=== PATIENT | male | born 1950 | race Caucasian/White ===

== ENCOUNTER 2018-08-19 11:29 | Emergency (ER) | payer MEDICARE, BC ==
[2018-08-19 11:59] LABS: ADD MAN DIFF? NO
[2018-08-19] MEDS: ONDANSETRON 4 MG INJ IV (12:01)
[2018-08-19] MEDS: morphine 4 MG/ML VIAL IV (12:01)
[2018-08-19] MEDS: NITROGLYCERIN (SL) 0.4 MG TAB SL (12:01)
[2018-08-19 12:06] LABS: BASOPHIL # 0.1 10^3/ul (0.0-0.1); EOSINOPHILS # 0.1 10^3/ul (0.0-0.5); HEMATOCRIT 36.6 % (42.0-52.0); LYMPHOCYTES # 1.2 10^3/ul (0.8-2.9); LYMPHOCYTES % 13.6 % (15.0-51.0); MEAN CORPUSCULAR HEMOGLOBIN 28.4 pg (29.0-33.0); MEAN CORPUSCULAR HGB CONC 32.8 g/dl (32.0-37.0); MEAN CORPUSCULAR VOLUME 86.7 fl (82.0-101.0); MEAN PLATELET VOLUME 10.8 fl (7.4-10.4); MONOCYTE # 1.2 10^3/ul (0.3-0.9); MONOCYTES % 12.9 % (0.0-11.0); NEUTROPHIL # 6.5 10^3/ul (1.6-7.5); NEUTROPHILS % 71.2 % (39.0-77.0); PLATELET COUNT 241 10^3/UL (140-415); RED BLOOD COUNT 4.22 10^6/ul (4.70-6.10); RED CELL DISTRIBUTION WIDTH 14.8 % (11.5-14.5)
[2018-08-19 12:06] LABS: WHITE BLOOD COUNT 9.1 10^3/ul (4.8-10.8)
[2018-08-19] MEDS: METOPROLOL 5 MG INJ IV (12:15)
[2018-08-19 12:30] LABS: ANION GAP 14 (5-13); BLOOD UREA NITROGEN 45 mg/dl (7-20); CALCIUM 8.9 mg/dl (8.4-10.2); CARBON DIOXIDE 18 mmol/L (21-31); CHLORIDE 109 mmol/L (97-110); CREATININE 5.47 mg/dl (0.61-1.24); GLUCOSE 125 mg/dl (70-220); POTASSIUM 4.3 mmol/L (3.5-5.1); SODIUM 141 mmol/L (135-144)
[2018-08-19 12:44] LABS: TROPONIN-I 0.021 ng/ml (0.000-0.120)
[2018-08-19 13:29] LABS: INR 0.97
[2018-08-19 14:04] LABS: PARTIAL THROMBOPLASTIN TIME 33.2 Sec (23.0-35.0)
== END 2018-08-19 14:12 | disposition short-term general hospital (02) ==
LOC: E/R 11:29
DX: I24.9 Acute ischemic heart disease, unspecified (principal); I16.1 Hypertensive emergency; N17.9 Acute kidney failure, unspecified; I25.10 Atherosclerotic heart disease of native coronary artery without angina pectoris; I50.9 Heart failure, unspecified; Z95.1 Presence of aortocoronary bypass graft; Z87.891 Personal history of nicotine dependence; Z79.01 Long term (current) use of anticoagulants
CPT/HCPCS: 36415; 71045; 80048; 84484; 85025; 85610; 85730; 93005; 96374; 96375; 99291-25

== ENCOUNTER 2019-02-02 07:13 | Inpatient (IN) | payer MEDICARE, BC ==
[2019-02-02 07:50] LABS: ADD MAN DIFF? NO
[2019-02-02 07:51] LABS: WHITE BLOOD COUNT 9.4 10^3/ul (4.8-10.8)
[2019-02-02 07:52] LABS: BASOPHIL # 0.1 10^3/ul (0.0-0.1); BASOPHILS % 1.1 % (0.0-2.0); EOSINOPHILS # 0.2 10^3/ul (0.0-0.5); EOSINOPHILS % 2.4 % (0.0-7.0); HEMATOCRIT 38.4 % (42.0-52.0); HEMOGLOBIN 12.4 g/dl (14.0-18.0); LYMPHOCYTES # 1.8 10^3/ul (0.8-2.9); LYMPHOCYTES % 19.3 % (15.0-51.0); MEAN CORPUSCULAR HEMOGLOBIN 26.8 pg (29.0-33.0); MEAN CORPUSCULAR HGB CONC 32.3 g/dl (32.0-37.0); MEAN CORPUSCULAR VOLUME 82.9 fl (82.0-101.0); MEAN PLATELET VOLUME 10.3 fl (7.4-10.4); MONOCYTES % 11.1 % (0.0-11.0); NEUTROPHIL # 6.2 10^3/ul (1.6-7.5); NEUTROPHILS % 65.7 % (39.0-77.0); PLATELET COUNT 285 10^3/UL (140-415); RED BLOOD COUNT 4.63 10^6/ul (4.70-6.10); RED CELL DISTRIBUTION WIDTH 18.7 % (11.5-14.5)
[2019-02-02] MEDS: morphine 4 MG/ML VIAL IV ×2 (07:59→11:21)
[2019-02-02 08:09] LABS: ANION GAP 11 (5-13); CARBON DIOXIDE 31 mmol/L (21-31); CHLORIDE 97 mmol/L (97-110); GLUCOSE 119 mg/dl (70-220); POTASSIUM 4.3 mmol/L (3.5-5.1); SODIUM 139 mmol/L (135-144)
[2019-02-02 08:10] LABS: BLOOD UREA NITROGEN 12 mg/dl (7-20); CALCIUM 9.5 mg/dl (8.4-10.2); CREATININE 4.31 mg/dl (0.61-1.24); Estimated GFR 14 mL/min (>60)
[2019-02-02 08:20] LABS: TROPONIN-I 0.114 ng/ml (0.000-0.120)
[2019-02-02] MEDS ORDERED: ACETAMINOPHEN 325 MG TAB PO ×2 (09:00→12:00)
[2019-02-02] MEDS ORDERED: ONDANSETRON 4 MG INJ IV (09:00)
[2019-02-02] MEDS ORDERED: NACL 0.9% 3 ML SYG IV (12:00)
[2019-02-02] MEDS ORDERED: HYDROCODONE/APAP (5/325) TAB PO (12:30)
[2019-02-02] MEDS: NICOTINE (7 MG/24 HR) PATCH TRANSDERM (12:58)
[2019-02-02] MEDS: FAMOTIDINE 20 MG TAB PO (13:47)
[2019-02-02] MEDS: HEPARIN 5,000 UNIT/1 ML VIAL SC ×2 (13:56→22:07)
[2019-02-02 14:45] LABS: HEMOGLOBIN A1C 5.7 % (0-5.9)
[2019-02-02 14:53] LABS: CREATINE KINASE 58 IU/L (23-200)
[2019-02-02 15:03] LABS: CK INDEX 6.9
[2019-02-02 15:04] LABS: CK-MB 4.03 ng/ml (0.0-2.4)
[2019-02-02 15:05] LABS: TROPONIN-I 0.891 ng/ml (0.000-0.120)
[2019-02-02 15:15] LABS: HAAIG REFLEX REFLEX FILED
[2019-02-02 15:54] LABS: HEPATITIS B SURFACE ANTIGEN NEGATIVE (NEGATIVE)
[2019-02-02 16:12] LABS: HEPATITIS B CORE ANTIBODY NEGATIVE (NEGATIVE); HEPATITIS C VIRAL ANTIBODY NEGATIVE (NEGATIVE)
[2019-02-02 20:08] LABS: CREATINE KINASE 59 IU/L (23-200)
[2019-02-02 20:21] LABS: CK INDEX 6.2
[2019-02-02 20:39] LABS: CK-MB 3.68 ng/ml (0.0-2.4)
[2019-02-02] MEDS ORDERED: ATORVASTATIN 10 MG TAB PO (21:00)
[2019-02-02] MEDS: ATORVASTATIN 40 MG TAB PO (21:56)
[2019-02-03] MEDS: DOXAZOSIN 2 MG TAB PO ×2 (00:47→20:19)
[2019-02-03 01:54] LABS: CREATINE KINASE 62 IU/L (23-200)
[2019-02-03 02:07] LABS: CK INDEX 4.8
[2019-02-03] MEDS: HEPARIN 1000 UNITS/ML 10 ML INJ CATHETER (02:54)
[2019-02-03] MEDS: ONDANSETRON 4 MG INJ IV (02:55)
[2019-02-03] MEDS: NITROGLYCERIN (SL) 0.4 MG TAB SL (03:50)
[2019-02-03] MEDS: morphine 2 MG INJ IV (04:27)
[2019-02-03] MEDS: HEPARIN 5,000 UNIT/1 ML VIAL SC ×3 (06:42→21:37)
[2019-02-03 06:51] LABS: ADD MAN DIFF? NO
[2019-02-03 06:55] LABS: WHITE BLOOD COUNT 10.5 10^3/ul (4.8-10.8)
[2019-02-03 06:55] LABS: BASOPHIL # 0.1 10^3/ul (0.0-0.1); BASOPHILS % 0.6 % (0.0-2.0); EOSINOPHILS % 0.2 % (0.0-7.0); HEMATOCRIT 36.7 % (42.0-52.0); LYMPHOCYTES # 1.2 10^3/ul (0.8-2.9); LYMPHOCYTES % 11.1 % (15.0-51.0); MEAN CORPUSCULAR HEMOGLOBIN 27.2 pg (29.0-33.0); MEAN CORPUSCULAR HGB CONC 32.7 g/dl (32.0-37.0); MEAN CORPUSCULAR VOLUME 83.2 fl (82.0-101.0); MEAN PLATELET VOLUME 10.7 fl (7.4-10.4); MONOCYTE # 0.8 10^3/ul (0.3-0.9); MONOCYTES % 7.4 % (0.0-11.0); NEUTROPHIL # 8.4 10^3/ul (1.6-7.5); NEUTROPHILS % 80.2 % (39.0-77.0); PLATELET COUNT 274 10^3/UL (140-415); RED BLOOD COUNT 4.41 10^6/ul (4.70-6.10); RED CELL DISTRIBUTION WIDTH 18.6 % (11.5-14.5)
[2019-02-03 07:36] LABS: ANION GAP 11 (5-13); BLOOD UREA NITROGEN 12 mg/dl (7-20); CALCIUM 9.3 mg/dl (8.4-10.2); CARBON DIOXIDE 26 mmol/L (21-31); CHLORIDE 100 mmol/L (97-110); CREATININE 3.85 mg/dl (0.61-1.24); Estimated GFR 16 mL/min (>60); GLUCOSE 119 mg/dl (70-220); POTASSIUM 4.7 mmol/L (3.5-5.1); SODIUM 137 mmol/L (135-144)
[2019-02-03 07:41] LABS: LDL CHOLESTEROL,CALCULATED 143 mg/dl
[2019-02-03 07:44] LABS: MAGNESIUM 2.1 mg/dl (1.7-2.5)
[2019-02-03 07:44] LABS: PHOSPHORUS 3.5 mg/dl (2.5-4.9)
[2019-02-03 07:47] LABS: CREATINE KINASE 49 IU/L (23-200)
[2019-02-03 07:50] LABS: CHOLESTEROL 218 mg/dl (100-200)
[2019-02-03 07:50] LABS: HDL CHOLESTEROL 36 mg/dl (30-78); TRIGLYCERIDES 195 mg/dl (0-149)
[2019-02-03 08:00] LABS: CK INDEX 4.7; CK-MB 2.28 ng/ml (0.0-2.4)
[2019-02-03] MEDS: NICOTINE (7 MG/24 HR) PATCH TRANSDERM (08:08)
[2019-02-03] MEDS: ASPIRIN (EC) 81 MG TAB PO (08:09)
[2019-02-03] MEDS: CLOPIDOGREL 75 MG TAB PO (08:10)
[2019-02-03] MEDS: METOPROLOL (XL) 50 MG TAB PO (08:10)
[2019-02-03] MEDS: AMLODIPINE 10 MG TAB PO (08:10)
[2019-02-03] MEDS: ISOSORBIDE MONONITRATE(SR)30 MG TAB PO (08:10)
[2019-02-03] MEDS: FAMOTIDINE 20 MG TAB PO (08:10)
[2019-02-03] MEDS ORDERED: ISOSORBIDE MONONITRATE(SR)30 MG TAB PO (09:00)
[2019-02-03 12:47] LABS: CREATINE KINASE 54 IU/L (23-200)
[2019-02-03 13:00] LABS: CK INDEX 3.3
[2019-02-03] MEDS ORDERED: SOD CHLORIDE 0.9% 1,000 ML IV (13:29)
[2019-02-03] MEDS ORDERED: ALBUMIN HUMAN 25% 100 ML IV (13:30)
[2019-02-03] MEDS ORDERED: HEPARIN 1000 UNITS/ML 10 ML INJ CATHETER (13:30)
[2019-02-03] MEDS ORDERED: SODIUM CHLORIDE 0.9% 1L BAG IV (13:30)
[2019-02-03] MEDS: ATORVASTATIN 40 MG TAB PO (20:20)
[2019-02-04] MEDS: NITROGLYCERIN (SL) 0.4 MG TAB SL (05:33)
[2019-02-04] MEDS: HEPARIN 5,000 UNIT/1 ML VIAL SC ×3 (05:40→22:19)
[2019-02-04 06:09] LABS: ADD MAN DIFF? NO
[2019-02-04 06:20] LABS: WHITE BLOOD COUNT 8.3 10^3/ul (4.8-10.8)
[2019-02-04 06:20] LABS: BASOPHILS % 0.5 % (0.0-2.0); EOSINOPHILS # 0.1 10^3/ul (0.0-0.5); EOSINOPHILS % 1.6 % (0.0-7.0); HEMATOCRIT 33.4 % (42.0-52.0); LYMPHOCYTES # 1.9 10^3/ul (0.8-2.9); LYMPHOCYTES % 22.5 % (15.0-51.0); MEAN CORPUSCULAR HEMOGLOBIN 27.2 pg (29.0-33.0); MEAN CORPUSCULAR HGB CONC 32.9 g/dl (32.0-37.0); MEAN CORPUSCULAR VOLUME 82.7 fl (82.0-101.0); MEAN PLATELET VOLUME 11.1 fl (7.4-10.4); MONOCYTES % 12.4 % (0.0-11.0); NEUTROPHIL # 5.2 10^3/ul (1.6-7.5); NEUTROPHILS % 62.6 % (39.0-77.0); PLATELET COUNT 285 10^3/UL (140-415); RED BLOOD COUNT 4.04 10^6/ul (4.70-6.10); RED CELL DISTRIBUTION WIDTH 18.6 % (11.5-14.5)
[2019-02-04 06:51] LABS: ALANINE AMINOTRANSFERASE 15 IU/L (13-69); ALBUMIN 3.3 g/dl (3.3-4.9); ALBUMIN/GLOBULIN RATIO 0.97; ALKALINE PHOSPHATASE 101 IU/L (42-121); ANION GAP 12 (5-13); ASPARTATE AMINO TRANSFERASE 20 IU/L (15-46); BILIRUBIN,INDIRECT 0.3 mg/dl (0-1.1); BILIRUBIN,TOTAL 0.3 mg/dl (0.2-1.3); BLOOD UREA NITROGEN 22 mg/dl (7-20); CALCIUM 9.4 mg/dl (8.4-10.2); CARBON DIOXIDE 26 mmol/L (21-31); CHLORIDE 100 mmol/L (97-110); CREATININE 5.65 mg/dl (0.61-1.24); Estimated GFR 10 mL/min (>60); GLUCOSE 125 mg/dl (70-220); POTASSIUM 4.4 mmol/L (3.5-5.1); SODIUM 138 mmol/L (135-144); TOTAL PROTEIN 6.7 g/dl (6.1-8.1)
[2019-02-04 06:54] LABS: CK-MB 1.22 ng/ml (0.0-2.4)
[2019-02-04 06:58] LABS: MAGNESIUM 2.2 mg/dl (1.7-2.5)
[2019-02-04] MEDS: AMLODIPINE 10 MG TAB PO (08:27)
[2019-02-04] MEDS: ISOSORBIDE MONONITRATE(SR)30 MG TAB PO (08:27)
[2019-02-04] MEDS: CLOPIDOGREL 75 MG TAB PO (08:28)
[2019-02-04] MEDS: FAMOTIDINE 20 MG TAB PO (08:28)
[2019-02-04] MEDS: NICOTINE (7 MG/24 HR) PATCH TRANSDERM (08:28)
[2019-02-04] MEDS: ASPIRIN (EC) 81 MG TAB PO (08:28)
[2019-02-04] MEDS: METOPROLOL (XL) 50 MG TAB PO (08:29)
[2019-02-04] MEDS ORDERED: MIDAZOLAM 1 MG/ML 2 ML INJ ×2 (11:46→13:40)
[2019-02-04] MEDS ORDERED: FENTAnyl 50 MCG/ML VIAL ×2 (11:46→13:37)
[2019-02-04] MEDS ORDERED: LIDOCAINE 1% (MDV) 20 ML INJ (11:46)
[2019-02-04] MEDS ORDERED: IODIXANOL LOCM 100 ML BTL ×4 (11:46→15:30)
[2019-02-04] MEDS ORDERED: BIVALIRUDIN 250MG /NS 50 ML 50 ML IVPB (12:53)
[2019-02-04] MEDS ORDERED: NITROGLYCERIN (IC) 100 MCG/ML INJ (12:54)
[2019-02-04] MEDS ORDERED: IOHEXOL 350MG/ML 50 ML BTL (13:04)
[2019-02-04] MEDS ORDERED: CLOPIDOGREL 300 MG TAB (13:52)
[2019-02-04] MEDS ORDERED: ZOLPIDEM 5 MG TAB PO (14:00)
[2019-02-04] MEDS ORDERED: AL HYDROX/MG HYDROX/SIMETH 30 ML CUP PO (14:00)
[2019-02-04] MEDS ORDERED: OXYCODONE/ACETAMINOPHEN (5/325) TAB PO (14:00)
[2019-02-04] MEDS ORDERED: ONDANSETRON 4 MG INJ IV (14:00)
[2019-02-04] MEDS ORDERED: ACETAMINOPHEN 325 MG TAB PO (14:00)
[2019-02-04] MEDS: morphine 2 MG INJ IV (15:32)
[2019-02-04 15:45] LABS: CK-MB 1.09 ng/ml (0.0-2.4)
[2019-02-04] MEDS ORDERED: ATROPINE 1 MG/10 ML SYRINGE (16:31)
[2019-02-04] MEDS: DOXAZOSIN 2 MG TAB PO (20:19)
[2019-02-04] MEDS: ATORVASTATIN 40 MG TAB PO (20:19)
[2019-02-04] MEDS: SOD CHLORIDE 0.9% 1,000 ML IV (22:39)
[2019-02-05] MEDS: HEPARIN 5,000 UNIT/1 ML VIAL SC ×3 (06:00→21:04)
[2019-02-05 06:35] LABS: ADD MAN DIFF? NO
[2019-02-05 06:40] LABS: BASOPHIL # 0.1 10^3/ul (0.0-0.1); BASOPHILS % 0.7 % (0.0-2.0); EOSINOPHILS # 0.1 10^3/ul (0.0-0.5); EOSINOPHILS % 1.7 % (0.0-7.0); HEMATOCRIT 32.6 % (42.0-52.0); HEMOGLOBIN 10.7 g/dl (14.0-18.0); LYMPHOCYTES # 1.2 10^3/ul (0.8-2.9); MEAN CORPUSCULAR HGB CONC 32.8 g/dl (32.0-37.0); MEAN CORPUSCULAR VOLUME 82.3 fl (82.0-101.0); MEAN PLATELET VOLUME 11.3 fl (7.4-10.4); MONOCYTE # 0.9 10^3/ul (0.3-0.9); MONOCYTES % 12.5 % (0.0-11.0); NEUTROPHIL # 5.1 10^3/ul (1.6-7.5); NEUTROPHILS % 68.8 % (39.0-77.0); PLATELET COUNT 276 10^3/UL (140-415); RED BLOOD COUNT 3.96 10^6/ul (4.70-6.10); RED CELL DISTRIBUTION WIDTH 18.8 % (11.5-14.5)
[2019-02-05 06:40] LABS: WHITE BLOOD COUNT 7.5 10^3/ul (4.8-10.8)
[2019-02-05 07:07] LABS: MAGNESIUM 2.2 mg/dl (1.7-2.5)
[2019-02-05 07:08] LABS: ANION GAP 12 (5-13); BLOOD UREA NITROGEN 26 mg/dl (7-20); CALCIUM 9.2 mg/dl (8.4-10.2); CARBON DIOXIDE 23 mmol/L (21-31); CHLORIDE 99 mmol/L (97-110); CREATINE KINASE 64 IU/L (23-200); CREATININE 6.98 mg/dl (0.61-1.24); Estimated GFR 8 mL/min (>60); GLUCOSE 90 mg/dl (70-220); POTASSIUM 4.5 mmol/L (3.5-5.1); SODIUM 134 mmol/L (135-144)
[2019-02-05 07:14] LABS: CK INDEX 3.4; CK-MB 2.15 ng/ml (0.0-2.4)
[2019-02-05 07:33] LABS: THYROID STIMULATING HORMONE 0.389 MIU/L (0.465-4.680)
[2019-02-05] MEDS: AMLODIPINE 10 MG TAB PO (09:00)
[2019-02-05] MEDS: METOPROLOL (XL) 50 MG TAB PO (09:00)
[2019-02-05] MEDS: ISOSORBIDE MONONITRATE(SR)30 MG TAB PO (09:00)
[2019-02-05] MEDS: ASPIRIN (EC) 81 MG TAB PO (09:40)
[2019-02-05] MEDS: FAMOTIDINE 20 MG TAB PO (09:40)
[2019-02-05] MEDS: CLOPIDOGREL 75 MG TAB PO (09:40)
[2019-02-05] MEDS: NICOTINE (7 MG/24 HR) PATCH TRANSDERM (09:41)
[2019-02-05] MEDS: HEPARIN 1000 UNITS/ML 10 ML INJ CATHETER (10:46)
[2019-02-05] MEDS: SEVELAMER CARBONATE 800 MG TABLET PO ×2 (13:11→20:57)
[2019-02-05] MEDS: REGADENOSON 0.4 MG/5 ML SYG (19:52)
[2019-02-05] MEDS: DOXAZOSIN 2 MG TAB PO (20:56)
[2019-02-05] MEDS: ATORVASTATIN 40 MG TAB PO (20:57)
[2019-02-06 05:18] LABS: ADD MAN DIFF? NO
[2019-02-06] MEDS: HEPARIN 5,000 UNIT/1 ML VIAL SC ×2 (05:28→14:05)
[2019-02-06 05:29] LABS: WHITE BLOOD COUNT 6.8 10^3/ul (4.8-10.8)
[2019-02-06 05:29] LABS: BASOPHIL # 0.1 10^3/ul (0.0-0.1); BASOPHILS % 0.9 % (0.0-2.0); EOSINOPHILS # 0.2 10^3/ul (0.0-0.5); EOSINOPHILS % 3.1 % (0.0-7.0); HEMATOCRIT 33.7 % (42.0-52.0); HEMOGLOBIN 11.1 g/dl (14.0-18.0); LYMPHOCYTES # 1.6 10^3/ul (0.8-2.9); LYMPHOCYTES % 22.8 % (15.0-51.0); MEAN CORPUSCULAR HEMOGLOBIN 26.9 pg (29.0-33.0); MEAN CORPUSCULAR HGB CONC 32.9 g/dl (32.0-37.0); MEAN CORPUSCULAR VOLUME 81.8 fl (82.0-101.0); MEAN PLATELET VOLUME 10.5 fl (7.4-10.4); MONOCYTES % 15.3 % (0.0-11.0); NEUTROPHIL # 3.9 10^3/ul (1.6-7.5); NEUTROPHILS % 57.6 % (39.0-77.0); PLATELET COUNT 275 10^3/UL (140-415); RED BLOOD COUNT 4.12 10^6/ul (4.70-6.10); RED CELL DISTRIBUTION WIDTH 18.7 % (11.5-14.5)
[2019-02-06 05:51] LABS: MAGNESIUM 2.1 mg/dl (1.7-2.5)
[2019-02-06 06:01] LABS: ALANINE AMINOTRANSFERASE 9 IU/L (13-69); ALBUMIN 3.5 g/dl (3.3-4.9); ALBUMIN/GLOBULIN RATIO 0.92; ALKALINE PHOSPHATASE 115 IU/L (42-121); ANION GAP 9 (5-13); ASPARTATE AMINO TRANSFERASE 21 IU/L (15-46); BILIRUBIN,INDIRECT 0.5 mg/dl (0-1.1); BILIRUBIN,TOTAL 0.5 mg/dl (0.2-1.3); BLOOD UREA NITROGEN 18 mg/dl (7-20); CALCIUM 9.3 mg/dl (8.4-10.2); CARBON DIOXIDE 28 mmol/L (21-31); CHLORIDE 100 mmol/L (97-110); Estimated GFR 11 mL/min (>60); GLUCOSE 95 mg/dl (70-220); POTASSIUM 4.3 mmol/L (3.5-5.1); SODIUM 137 mmol/L (135-144); TOTAL PROTEIN 7.3 g/dl (6.1-8.1)
[2019-02-06 06:45] LABS: FREE T4 (FREE THYROXINE) 2.15 ng/dl (0.78-2.44)
[2019-02-06 07:00] LABS: TRIIODOTHYRONINE 0.92 ng/ml (0.97-1.69)
[2019-02-06 07:35] LABS: FOLATE 7.5 ng/ml (2.8-20.0)
[2019-02-06] MEDS: METOPROLOL (XL) 50 MG TAB PO (09:00)
[2019-02-06] MEDS: NICOTINE (7 MG/24 HR) PATCH TRANSDERM ×2 (09:00→12:48)
[2019-02-06] MEDS: AMLODIPINE 10 MG TAB PO (09:00)
[2019-02-06] MEDS: ISOSORBIDE MONONITRATE(SR)30 MG TAB PO (09:00)
[2019-02-06] MEDS: ASPIRIN (EC) 81 MG TAB PO (09:51)
[2019-02-06] MEDS: CLOPIDOGREL 75 MG TAB PO (09:51)
[2019-02-06] MEDS: SEVELAMER CARBONATE 800 MG TABLET PO ×2 (09:51→12:45)
[2019-02-06 16:57] LABS: RAPID PLASMA REAGIN NONREACTIVE (NR)
[2019-02-06] MEDS: HEPARIN 1000 UNITS/ML 10 ML INJ CATHETER (18:10)
== END 2019-02-06 20:30 | disposition home or self-care (01) | DRG 246 ==
LOC: E/R 07:13 → 2NE 02-05 21:40 → TEL 08:32
PROC: 027136Z Dilation of Coronary Artery, Two Arteries with Three Drug-eluting Intraluminal Devices, Percutaneous Approach (ICD-10-PCS; principal; 2019-02-04 11:30)
PROC: 4A023N7 Measurement of Cardiac Sampling and Pressure, Left Heart, Percutaneous Approach (ICD-10-PCS; 2019-02-04 11:30)
PROC: B211YZZ Fluoroscopy of Multiple Coronary Arteries using Other Contrast (ICD-10-PCS; 2019-02-04 11:30)
PROC: B218YZZ Fluoroscopy of Left Internal Mammary Bypass Graft using Other Contrast (ICD-10-PCS; 2019-02-04 11:30)
PROC: 5A1D70Z Performance of Urinary Filtration, Intermittent, Less than 6 Hours Per Day (ICD-10-PCS; 2019-02-04 11:47)
DX: I21.4 Non-ST elevation (NSTEMI) myocardial infarction (principal); N18.6 End stage renal disease; I13.2 Hypertensive heart and chronic kidney disease with heart failure and with stage 5 chronic kidney disease, or end stage renal disease; I50.30 Unspecified diastolic (congestive) heart failure; I25.810 Atherosclerosis of coronary artery bypass graft(s) without angina pectoris; I42.9 Cardiomyopathy, unspecified; I25.10 Atherosclerotic heart disease of native coronary artery without angina pectoris; Z99.2 Dependence on renal dialysis; E78.5 Hyperlipidemia, unspecified; N40.0 Benign prostatic hyperplasia without lower urinary tract symptoms; I25.2 Old myocardial infarction; R41.0 Disorientation, unspecified; I27.20 Pulmonary hypertension, unspecified; I25.82 Chronic total occlusion of coronary artery; F17.210 Nicotine dependence, cigarettes, uncomplicated; D63.1 Anemia in chronic kidney disease
CPT/HCPCS: 71045; 78452; 80048; 80053; 80061; 82550; 82553; 82607; 82746; 83036; 83735; 84100; 84439; 84443; 84480; 84484; 85025; 86592; 86704; 86709; 86803; 87340; 90935; 93005; 93017; 93306; 93459; 96374; 99285-25; G0378

== ENCOUNTER 2019-05-28 06:17 | Inpatient (IN) | payer MEDICARE, BC ==
[2019-05-28] MEDS ORDERED: NITROGLYCERIN (SL) 0.4 MG TAB SL (06:30)
[2019-05-28] MEDS: NITROGLYCERIN 2% 1 GM OINT PKT TD (06:35)
[2019-05-28] MEDS: FUROSEMIDE 40 MG INJ IV ×2 (06:36→17:06)
[2019-05-28 06:39] LABS: ADD MAN DIFF? NO
[2019-05-28 06:47] LABS: BASOPHIL # 0.1 10^3/ul (0.0-0.1); BASOPHILS % 0.8 % (0.0-2.0); EOSINOPHILS # 0.8 10^3/ul (0.0-0.5); EOSINOPHILS % 7.1 % (0.0-7.0); HEMATOCRIT 26.5 % (42.0-52.0); HEMOGLOBIN 8.7 g/dl (14.0-18.0); LYMPHOCYTES # 1.5 10^3/ul (0.8-2.9); LYMPHOCYTES % 13.3 % (15.0-51.0); MEAN CORPUSCULAR HEMOGLOBIN 25.8 pg (29.0-33.0); MEAN CORPUSCULAR HGB CONC 32.8 g/dl (32.0-37.0); MEAN CORPUSCULAR VOLUME 78.6 fl (82.0-101.0); MEAN PLATELET VOLUME 12.2 fl (7.4-10.4); MONOCYTE # 0.8 10^3/ul (0.3-0.9); MONOCYTES % 7.2 % (0.0-11.0); NEUTROPHIL # 7.9 10^3/ul (1.6-7.5); NEUTROPHILS % 71.2 % (39.0-77.0); PLATELET COUNT 249 10^3/UL (140-415); RED BLOOD COUNT 3.37 10^6/ul (4.70-6.10); RED CELL DISTRIBUTION WIDTH 16.9 % (11.5-14.5)
[2019-05-28 06:47] LABS: WHITE BLOOD COUNT 11.1 10^3/ul (4.8-10.8)
[2019-05-28 07:02] LABS: ANION GAP 16 (5-13); BLOOD UREA NITROGEN 79 mg/dl (7-20); CALCIUM 9.2 mg/dl (8.4-10.2); CHLORIDE 112 mmol/L (97-110); CREATININE 9.55 mg/dl (0.61-1.24); Estimated GFR 6 mL/min (>60); GLUCOSE 89 mg/dl (70-220); POTASSIUM 4.5 mmol/L (3.5-5.1); SODIUM 138 mmol/L (135-144)
[2019-05-28 07:04] LABS: CARBON DIOXIDE 10 mmol/L (21-31)
[2019-05-28 07:14] LABS: TROPONIN-I 0.072 ng/ml (0.000-0.120)
[2019-05-28] MEDS ORDERED: ONDANSETRON 4 MG INJ IV (07:30)
[2019-05-28] MEDS ORDERED: ACETAMINOPHEN 325 MG TAB PO ×2 (07:30→13:30)
[2019-05-28] MEDS ORDERED: LORAZEPAM 0.5 MG TAB PO (13:30)
[2019-05-28] MEDS ORDERED: ZOLPIDEM 5 MG TAB PO (13:30)
[2019-05-28] MEDS: DOCUSATE SODIUM 100 MG CAP PO ×2 (13:32→23:04)
[2019-05-28] MEDS: FAMOTIDINE 20 MG TAB PO (13:32)
[2019-05-28 13:33] LABS: CREATINE KINASE 42 IU/L (23-200)
[2019-05-28 13:43] LABS: CK INDEX 2.5; CK-MB 1.04 ng/ml (0.0-2.4)
[2019-05-28 14:36] LABS: HEPATITIS B SURFACE ANTIGEN NEGATIVE (NEGATIVE)
[2019-05-28] MEDS: METOPROLOL (XL) 50 MG TAB PO (17:00)
[2019-05-28] MEDS ORDERED: hydrALAzine 20 MG INJ IV (17:00)
[2019-05-28] MEDS: HYDROCODONE/APAP (5/325) TAB PO ×2 (17:52→22:59)
[2019-05-28 18:52] LABS: CREATINE KINASE 44 IU/L (23-200)
[2019-05-28 18:56] LABS: CK INDEX 2.8; CK-MB 1.23 ng/ml (0.0-2.4); TROPONIN-I 0.095 ng/ml (0.000-0.120)
[2019-05-28] MEDS: HEPARIN 1000 UNITS/ML 10 ML INJ CATHETER (19:37)
[2019-05-28] MEDS: ATORVASTATIN 20 MG TAB PO (21:25)
[2019-05-28] MEDS: FISH OIL 1,000 MG CAP PO (21:25)
[2019-05-28] MEDS: SEVELAMER CARBONATE 800 MG TABLET PO (21:25)
[2019-05-28] MEDS: LOSARTAN 25 MG TAB PO (21:25)
[2019-05-28] MEDS: HEPARIN 5,000 UNIT/1 ML VIAL SC (21:42)
[2019-05-29] MEDS: FUROSEMIDE 40 MG INJ IV ×3 (05:52→17:42)
[2019-05-29 06:02] LABS: ADD MAN DIFF? NO
[2019-05-29 06:06] LABS: BASOPHIL # 0.1 10^3/ul (0.0-0.1); BASOPHILS % 1.3 % (0.0-2.0); EOSINOPHILS # 0.7 10^3/ul (0.0-0.5); EOSINOPHILS % 8.4 % (0.0-7.0); HEMATOCRIT 27.7 % (42.0-52.0); HEMOGLOBIN 9.4 g/dl (14.0-18.0); LYMPHOCYTES # 1.5 10^3/ul (0.8-2.9); MEAN CORPUSCULAR HEMOGLOBIN 25.9 pg (29.0-33.0); MEAN CORPUSCULAR HGB CONC 33.9 g/dl (32.0-37.0); MEAN CORPUSCULAR VOLUME 76.3 fl (82.0-101.0); MEAN PLATELET VOLUME 11.3 fl (7.4-10.4); MONOCYTE # 0.9 10^3/ul (0.3-0.9); MONOCYTES % 10.8 % (0.0-11.0); NEUTROPHILS % 61.1 % (39.0-77.0); PLATELET COUNT 298 10^3/UL (140-415); RED BLOOD COUNT 3.63 10^6/ul (4.70-6.10)
[2019-05-29 06:06] LABS: WHITE BLOOD COUNT 8.2 10^3/ul (4.8-10.8)
[2019-05-29 06:37] LABS: ANION GAP 15 (5-13); BLOOD UREA NITROGEN 37 mg/dl (7-20); CALCIUM 9.1 mg/dl (8.4-10.2); CARBON DIOXIDE 23 mmol/L (21-31); CHLORIDE 100 mmol/L (97-110); CREATININE 5.06 mg/dl (0.61-1.24); Estimated GFR 12 mL/min (>60); GLUCOSE 99 mg/dl (70-220); MAGNESIUM 2.1 mg/dl (1.7-2.5); SODIUM 138 mmol/L (135-144)
[2019-05-29 06:44] LABS: POTASSIUM 2.9 mmol/L (3.5-5.1)
[2019-05-29] MEDS: POTASSIUM CHLORIDE (SR) 20 MEQ TAB PO ×2 (07:43→11:21)
[2019-05-29] MEDS: SEVELAMER CARBONATE 800 MG TABLET PO ×3 (08:34→21:23)
[2019-05-29] MEDS: DOCUSATE SODIUM 100 MG CAP PO ×2 (08:34→21:23)
[2019-05-29] MEDS: FISH OIL 1,000 MG CAP PO ×2 (08:34→21:23)
[2019-05-29] MEDS: FAMOTIDINE 20 MG TAB PO (08:34)
[2019-05-29] MEDS: ASPIRIN 81 MG TAB PO (08:35)
[2019-05-29] MEDS: METOPROLOL (XL) 50 MG TAB PO (08:35)
[2019-05-29] MEDS: HYDROCODONE/APAP (5/325) TAB PO (08:35)
[2019-05-29] MEDS: HEPARIN 5,000 UNIT/1 ML VIAL SC ×2 (08:36→21:34)
[2019-05-29] MEDS: CLOPIDOGREL 75 MG TAB PO (14:42)
[2019-05-29] MEDS: EPOETIN ALFA-EPBX (ESRD) 10,000 UNIT/ML VIAL SC (17:20)
[2019-05-29] MEDS: LOSARTAN 25 MG TAB PO (21:00)
[2019-05-29] MEDS: ATORVASTATIN 20 MG TAB PO (21:23)
[2019-05-29] MEDS: HEPARIN 1000 UNITS/ML 10 ML INJ CATHETER (23:29)
[2019-05-30] MEDS: FUROSEMIDE 40 MG INJ IV (05:53)
[2019-05-30 06:29] LABS: CK INDEX 0.9; CK-MB 1.17 ng/ml (0.0-2.4); CREATINE KINASE 130 IU/L (23-200)
[2019-05-30 08:42] LABS: ANION GAP 15 (5-13); BLOOD UREA NITROGEN 18 mg/dl (7-20); CALCIUM 9.9 mg/dl (8.4-10.2); CARBON DIOXIDE 25 mmol/L (21-31); CHLORIDE 100 mmol/L (97-110); CREATININE 3.42 mg/dl (0.61-1.24); Estimated GFR 18 mL/min (>60); GLUCOSE 118 mg/dl (70-220); POTASSIUM 3.6 mmol/L (3.5-5.1); SODIUM 140 mmol/L (135-144)
[2019-05-30] MEDS: SEVELAMER CARBONATE 800 MG TABLET PO ×3 (08:47→20:24)
[2019-05-30] MEDS: METOPROLOL (XL) 50 MG TAB PO (08:48)
[2019-05-30] MEDS: ASPIRIN 81 MG TAB PO (08:48)
[2019-05-30] MEDS: FAMOTIDINE 20 MG TAB PO (08:48)
[2019-05-30] MEDS: CLOPIDOGREL 75 MG TAB PO (08:49)
[2019-05-30] MEDS: DOCUSATE SODIUM 100 MG CAP PO ×2 (08:49→20:24)
[2019-05-30] MEDS: HEPARIN 5,000 UNIT/1 ML VIAL SC ×2 (08:58→20:38)
[2019-05-30] MEDS: FISH OIL 1,000 MG CAP PO ×2 (08:59→20:24)
[2019-05-30 12:32] LABS: CREATINE KINASE 99 IU/L (23-200)
[2019-05-30 12:42] LABS: CK INDEX 0.9; CK-MB 0.91 ng/ml (0.0-2.4); TROPONIN-I 0.115 ng/ml (0.000-0.120)
[2019-05-30] MEDS: HYDROCODONE/APAP (5/325) TAB PO (13:58)
[2019-05-30] MEDS: AZITHROMYCIN 250 MG TAB PO (15:21)
[2019-05-30] MEDS: FUROSEMIDE 40 MG TAB PO (18:38)
[2019-05-30 18:48] LABS: CREATINE KINASE 75 IU/L (23-200)
[2019-05-30 19:01] LABS: CK INDEX 0.8; CK-MB 0.63 ng/ml (0.0-2.4); TROPONIN-I 0.093 ng/ml (0.000-0.120)
[2019-05-30] MEDS: ATORVASTATIN 20 MG TAB PO (20:24)
[2019-05-30] MEDS: LOSARTAN 25 MG TAB PO (20:25)
[2019-05-31] MEDS: FUROSEMIDE 40 MG TAB PO ×2 (05:48→17:50)
[2019-05-31] MEDS: FAMOTIDINE 20 MG TAB PO (09:00)
[2019-05-31] MEDS: SEVELAMER CARBONATE 800 MG TABLET PO ×3 (09:00→22:23)
[2019-05-31] MEDS: METOPROLOL (XL) 50 MG TAB PO (09:00)
[2019-05-31] MEDS: FISH OIL 1,000 MG CAP PO ×2 (09:00→22:23)
[2019-05-31] MEDS: CLOPIDOGREL 75 MG TAB PO (09:00)
[2019-05-31] MEDS: ASPIRIN 81 MG TAB PO (09:00)
[2019-05-31] MEDS: DOCUSATE SODIUM 100 MG CAP PO ×2 (09:00→22:22)
[2019-05-31] MEDS: HEPARIN 5,000 UNIT/1 ML VIAL SC ×2 (09:03→22:34)
[2019-05-31] MEDS: HYDROCODONE/APAP (5/325) TAB PO (12:14)
[2019-05-31] MEDS: NITROGLYCERIN (SL) 0.4 MG TAB SL (12:46)
[2019-05-31] MEDS: ONDANSETRON 4 MG INJ IV (13:22)
[2019-05-31] MEDS: HEPARIN 1000 UNITS/ML 10 ML INJ CATHETER (13:25)
[2019-05-31] MEDS: DEXTROSE 5%-0.45% NACL 500 ML BAG IV (13:45)
[2019-05-31 15:12] LABS: CREATINE KINASE 80 IU/L (23-200)
[2019-05-31 15:22] LABS: CK INDEX 0.9; CK-MB 0.69 ng/ml (0.0-2.4); TROPONIN-I 0.088 ng/ml (0.000-0.120)
[2019-05-31] MEDS: EPOETIN ALFA-EPBX (ESRD) 10,000 UNIT/ML VIAL SC (17:51)
[2019-05-31] MEDS: LOSARTAN 25 MG TAB PO (21:00)
[2019-05-31] MEDS: ATORVASTATIN 20 MG TAB PO (22:23)
[2019-06-01] MEDS: FUROSEMIDE 40 MG TAB PO (05:46)
[2019-06-01 06:08] LABS: ADD MAN DIFF? NO
[2019-06-01 06:13] LABS: ABNORMAL IP MESSAGE 1; BASOPHIL # 0.1 10^3/ul (0.0-0.1); BASOPHILS % 0.9 % (0.0-2.0); EOSINOPHILS # 0.5 10^3/ul (0.0-0.5); EOSINOPHILS % 3.2 % (0.0-7.0); HEMATOCRIT 33.2 % (42.0-52.0); HEMOGLOBIN 10.9 g/dl (14.0-18.0); LYMPHOCYTES # 2.1 10^3/ul (0.8-2.9); LYMPHOCYTES % 13.2 % (15.0-51.0); MEAN CORPUSCULAR HGB CONC 32.8 g/dl (32.0-37.0); MEAN CORPUSCULAR VOLUME 79.2 fl (82.0-101.0); MEAN PLATELET VOLUME 11.3 fl (7.4-10.4); MONOCYTES % 12.9 % (0.0-11.0); NEUTROPHIL # 10.9 10^3/ul (1.6-7.5); NEUTROPHILS % 69.2 % (39.0-77.0); PLATELET COUNT 402 10^3/UL (140-415); POSITIVE DIFF @See below; RED BLOOD COUNT 4.19 10^6/ul (4.70-6.10); RED CELL DISTRIBUTION WIDTH 17.8 % (11.5-14.5)
[2019-06-01 06:13] LABS: WHITE BLOOD COUNT 15.8 10^3/ul (4.8-10.8)
[2019-06-01 07:02] LABS: ANION GAP 15 (5-13); BLOOD UREA NITROGEN 18 mg/dl (7-20); CALCIUM 9.7 mg/dl (8.4-10.2); CARBON DIOXIDE 21 mmol/L (21-31); CHLORIDE 100 mmol/L (97-110); CREATININE 5.09 mg/dl (0.61-1.24); Estimated GFR 11 mL/min (>60); GLUCOSE 115 mg/dl (70-220); POTASSIUM 4.2 mmol/L (3.5-5.1); SODIUM 136 mmol/L (135-144)
[2019-06-01] MEDS: CLOPIDOGREL 75 MG TAB PO (08:28)
[2019-06-01] MEDS: FAMOTIDINE 20 MG TAB PO (08:28)
[2019-06-01] MEDS: ASPIRIN 81 MG TAB PO (08:28)
[2019-06-01] MEDS: DOCUSATE SODIUM 100 MG CAP PO (08:28)
[2019-06-01] MEDS: METOPROLOL (XL) 50 MG TAB PO (08:29)
[2019-06-01] MEDS: SEVELAMER CARBONATE 800 MG TABLET PO ×2 (08:29→12:23)
[2019-06-01] MEDS: FISH OIL 1,000 MG CAP PO (08:32)
[2019-06-01] MEDS: HEPARIN 5,000 UNIT/1 ML VIAL SC (08:32)
== END 2019-06-01 14:00 | disposition home or self-care (01) | DRG 291 ==
LOC: E/R 06:17 → 6WM 07:22
PROC: 5A1D70Z Performance of Urinary Filtration, Intermittent, Less than 6 Hours Per Day (ICD-10-PCS; 2019-05-28)
PROC: 5A1D70Z Performance of Urinary Filtration, Intermittent, Less than 6 Hours Per Day (ICD-10-PCS; 2019-05-29)
PROC: 5A1D70Z Performance of Urinary Filtration, Intermittent, Less than 6 Hours Per Day (ICD-10-PCS; principal; 2019-05-31)
DX: I13.2 Hypertensive heart and chronic kidney disease with heart failure and with stage 5 chronic kidney disease, or end stage renal disease (principal); I50.23 Acute on chronic systolic (congestive) heart failure; N18.6 End stage renal disease; J96.91 Respiratory failure, unspecified with hypoxia; N17.9 Acute kidney failure, unspecified; E87.2 Acidosis; I95.9 Hypotension, unspecified; I42.9 Cardiomyopathy, unspecified; R07.9 Chest pain, unspecified; E78.5 Hyperlipidemia, unspecified; E87.70 Fluid overload, unspecified; J20.9 Acute bronchitis, unspecified; I25.10 Atherosclerotic heart disease of native coronary artery without angina pectoris; D50.9 Iron deficiency anemia, unspecified; F17.200 Nicotine dependence, unspecified, uncomplicated; I16.0 Hypertensive urgency; E87.6 Hypokalemia; R55 Syncope and collapse; Z99.2 Dependence on renal dialysis; Z79.82 Long term (current) use of aspirin; Z95.5 Presence of coronary angioplasty implant and graft; Z79.02 Long term (current) use of antithrombotics/antiplatelets
CPT/HCPCS: 36415; 71045; 80048; 82550; 82553; 82962; 83735; 84484; 85025; 87040-91; 87070; 87081; 87340; 90935; 93005; 96374; 97110; 97162; 97530; 99285-25